=== PATIENT | female | born 1965 | race Caucasian/White ===

== ENCOUNTER 2021-01-23 10:48 | Outpatient (CLI) | payer BC, SELFPAY ==
--- NOTE | 2021-01-23 10:56 | MM_ITS ---
WS: [id number] BILATERAL SCREENING DIGITAL MAMMOGRAM WITH CAD HISTORY: SCREENING COMPARISON: 02/28/2019 and 04/06/2017 Bilateral CC and MLO views submitted. Computer aided detection analyzed. Breast composition: There are scattered areas of fibroglandular density. No suspicious masses, microc alcifications or architectural distortion. Benign calcification in the central LEFT breast. MM/[place] [id number] IMPRESSION: BI-RADS: 2-Benign FOLLOW UP: 1 Year Follow-up
== END 2021-01-23 10:49 | disposition home or self-care (01) ==
LOC: RADSHAW 10:54
PROVIDERS: PCP Nurse Practitioner Family; Visit Provider Nurse Practitioner Family
DX: Z12.31 Encounter for screening mammogram for malignant neoplasm of breast (principal)
CPT/HCPCS: 77067

== ENCOUNTER 2022-02-27 13:08 | Outpatient (CLI) | payer MEDICARE, BC, SELFPAY ==
--- NOTE | 2022-02-27 13:18 | MM_ITS ---
WS: [id number] BILATERAL 3D TOMOSYNTHESIS DIGITAL SCREENING MAMMOGRAPHY WITH CAD CLINICAL INFORMATION: SCREENING HISTORY: Screening mammogram. No current complaints. COMPARISON: January 23, 2021 TECHNIQUE: Bilateral CC and MLO views. FINDINGS: Scattered fibroglandular densities bilaterally. No suspicious focal mass, asymmetry, calcifications, or architectural distortion. No evidence of malignancy. Incidental punctate calcifications. MM/[place] [id number] IMPRESSION: BI-RADS: 2-Benign FOLLOW UP: 1 Year Follow-up Recommend return to annual screening mammography.
== END 2022-02-27 13:09 | disposition home or self-care (01) ==
LOC: RAD 13:09
PROVIDERS: PCP Nurse Practitioner Family; Visit Provider Nurse Practitioner Family
DX: Z12.31 Encounter for screening mammogram for malignant neoplasm of breast (principal)
CPT/HCPCS: 77063; 77067

== ENCOUNTER 2023-06-03 14:27 | Outpatient (CLI) | payer MEDICARE, BC, SELFPAY ==
--- NOTE | 2023-06-03 14:33 | MM_ITS ---
WS: [id number] BILATERAL 3D TOMOSYNTHESIS DIGITAL SCREENING MAMMOGRAPHY WITH CAD CLINICAL INFORMATION: SCREENING HISTORY: Screening mammogram. No current complaints. COMPARISON: 2021 TECHNIQUE: Bilateral CC and MLO views. FINDINGS: Scattered fibroglandular densities bilaterally. No suspicious focal mass, asymmetry, calcifications, or architectural distortion. No evidence of malignancy. Incidental punctate calcifications. IMPRESSION: MM/[place] [id number] BI-RADS: 2-Benign FOLLOW UP: 1 Year Follow-up Recommend return to annual screening mammography.
== END 2023-06-03 14:28 | disposition home or self-care (01) ==
PROVIDERS: PCP Nurse Practitioner Family; Visit Provider Nurse Practitioner Family
DX: Z12.31 Encounter for screening mammogram for malignant neoplasm of breast (principal)
CPT/HCPCS: 77063; 77067

== ENCOUNTER 2024-05-02 08:32 | Emergency (ER) | payer MEDICARE, BC, SELFPAY ==
[2024-05-02 08:45] VITALS: BP 139/101; PULSE 69; RESP 17; TEMP 36.9; O2SAT 97; BMI 56.5
--- NOTE | 2024-05-02 08:50 | ED_ITS ---
HPI - Abdominal Pain 2 General: Chief Complaint: Fever Stated Complaint: abd pain, back pain, fever Time Seen by Provider: 05/02/24 08:46 History of Present Illness: 58-year-old female presents to the [facility] room with fever and back pain. She reports a temp of 100 last night she has pain in the right upper quadrant radiates to the back. She is intermittently had this in the past. She has some generalized myalgias and headache. Denies chest pain no dysuria urgency or frequency no vomiting or diarrhea at this time she has been very nauseous. Associated Symptoms: Reports nausea; Denies chills, coffee ground emesis, diarrhea, dysuria, fever(s), hematemesis and vomiting Related Data Home Medications Medication Instructions Recorded Confirmed acetaminophen 500 mg tablet 100 mg PO BID PRN Pain 05/02/24 05/02/24 (Tylenol Extra Strength) amlodipine 10 mg-benazepril 40 mg 1 cap PO DAILY 05/02/24 05/02/24 capsule apixaban 5 mg tablet (Eliquis) 5 mg PO BID 05/02/24 05/02/24 atenolol 50 mg tablet 50 mg PO BID 05/02/24 05/02/24 atorvastatin 10 mg tablet 10 mg PO DAILY 05/02/24 05/02/24 cetirizine 10 mg tablet (Zyrtec) 10 mg PO DAILY PRN allergies 05/02/24 05/02/24 cyclobenzaprine 5 mg tablet 5 mg PO BID 05/02/24 05/02/24 docusate sodium 50 mg capsule 50 mg PO DAILY 05/02/24 05/02/24 duloxetine 60 mg capsule,delayed 60 mg PO DAILY 05/02/24 05/02/24 release gabapentin 300 mg capsule 300 mg PO BID 05/02/24 05/02/24 oprzpsklmyp-vavguigti-rfw C-Mn 500 1 cap PO DAILY 05/02/24 05/02/24 mg-400 mg capsule golimumab 12.5 mg/mL intravenous 12.5 mg IV Q30D 05/02/24 05/02/24 solution (Simponi ARIA) liraglutide 0.6 mg/0.1 mL (18 mg/3 0.6 mg SUBCUT DAILY 05/02/24 05/02/24 mL) subcutaneous pen injector ([employer] 3-Rashaun) melatonin-herbal complex #184 1 gummy PO BEDTIME PRN Sleep 05/02/24 05/02/24 methotrexate sodium 2.5 mg tablet 2.5 mg PO Q7D 05/02/24 05/02/24 multivitamin 1 tab PO DAILY 05/02/24 05/02/24 omeprazole 20 mg tablet,delayed 20 mg PO DAILY 05/02/24 05/02/24 release polyethylene glycol 3350 17 17 g PO DAILY PRN constipation 05/02/24 05/02/24 gram/dose oral powder (Miralax) prednisone 5 mg tablet 5 mg PO DAILY 05/02/24 05/02/24 solifenacin 10 mg tablet 10 mg PO DAILY 05/02/24 05/02/24 vitamin B complex 1 tab PO DAILY 05/02/24 05/02/24 Previous Rx's Medication Instructions Recorded ciprofloxacin HCl 500 mg tablet 500 mg PO BID #20 tabs 05/02/24 (Cipro) hydrocodone 5 mg-acetaminophen 325 1 tab PO Q6H PRN pain #20 tabs 05/02/24 mg tablet metronidazole 500 mg tablet 500 mg PO BID 10 days #20 tabs 05/02/24 promethazine 25 mg tablet 25 mg PO Q6H PRN nausea and 05/02/24 vomiting #20 tabs Allergies Allergy/AdvReac Type Severity Reaction Status Date / Time Penicillins Allergy ALGY-Rash Verified 05/02/24 08:51 Sulfa (Sulfonamide Allergy ALGY-Rash Verified 05/02/24 08:51 Antibiotics) Review of Systems 2 Const: Denies: fever(s) or chills Card: Denies: chest pain Resp: Denies: dyspnea GI: Reports: abdominal pain and nausea; Denies: vomiting, hematemesis, coffee ground emesis or diarrhea : Denies: dysuria, urinary frequency or urinary urgency Musc: Denies: neck pain or back pain Skin/Breast: Denies: rash Physical Exam 2 Const: GENERAL APPEARANCE: cooperative ORIENTATION/CONSCIOUSNESS: Yes awake, Yes oriented to person, Yes oriented to place and Yes oriented to time HENMT: COMMON NORMALS: normocephalic, atraumatic and hearing grossly normal bilaterally HEAD & SCALP: normocephalic and atraumatic Resp: COMMON NORMALS: normal respiratory effort, No retractions, No use of accessory muscles and clear to auscultation bilaterally AUSCULTATION: clear to auscultation bilaterally Cardio: COMMON NORMALS: regular rate, regular rhythm and No murmurs present (Cardio) RATE: regular rate RHYTHM: regular rhythm GI: COMMON NORMALS: Soft to palpation and No hepatosplenomegaly present A USCULTATION: Yes normoactive bowel sounds PALPATION: Yes Soft to palpation, No Tenderness to palpation present (GI), No Guarding due to palpation present (GI) and Yes No hepatosplenomegaly present Extremity: COMMON NORMALS: normal to inspection, capillary refill normal, no clubbing, cyanosis or edema, no calf tenderness and no pedal edema Neuro: SENSORIUM/ORIENTATION: Yes oriented to person, Yes oriented to place and Yes oriented to time Skin: COMMON NORMALS: no rashes or lesions noted GENERAL SKIN EXAM: no rashes or lesions noted Course 2 Vital Signs: Vital signs: Vital Signs Temperature 98.5 F 05/02/24 08:45 Pulse Rate 64 05/02/24 12:53 Respiratory Rate 16 05/02/24 10:08 Blood Pressure 137/89 05/02/24 12:53 Pulse Oximetry 91 05/02/24 12:53 Oxygen Delivery Me thod Room Air 05/02/24 12:35 MDM - Abdominal Pain Medical Decision Making Suspect patient may have gallbladder issues some of her symptoms are consistent with cholecystitis. We also screened her for COVID. Reviewed your case with on-call surgeon he recommends discharge home on oral antibiotics and follow-up with him in the office. Respiratory panel came back after the patient left and is positive for COVID she has medicines that she is on that interact with Paxlovid recommended having her just to check up with her primary care provider. At this point would recommend her not taking about Paxlovid. Medical Records I reviewed the patient's medical records. Lab Data I reviewed the patient's lab results. 05/02/24 09:12 05/02/24 09:12 Labs/Radiology: Radiology Impressions Gallbladder Ultrasound 05/02/24 09:48 IMPRESSION: 1. Cholelithiasis with gallbladder hydrops. No wall thickening or pericholecystic fluid but suspicious for developing acute cholecystitis. 2. No intrahepatic bile duct dilatation. 3. RIGHT renal cyst. Abdomen/Pelvis CT 05/02/24 09:49 IMPRESSION: 1. No CT evidence for acute cholecystitis. Gallbladder is very slightly hydropic and there are stones present in the lumen but there is no adjacent inflammation or wall thickening. 2. Normal common bile duct. 3. Solid appearing mass anterior mid LEFT kidney measures 2.3 x 2.5 cm. Recommend renal mass CT protocol. This can be performed with CT or MRI with and without IV contrast. 4. No renal obstruction. 5. Pelvis is obscured by artifact secondary to bilateral hip prostheses. Laboratory Results WBC 7.16 10^3/uL (3.29-11.43) 05/02/24 09:12 RBC 4.35 10^6/uL (3.85-5.65) 05/02/24 09:12 Hgb 13.60 g/dL (11.27-16.99) 05/02/24 09:12 Hct 41.1 % (36-47) 05/02/24 09:12 MCV 94.5 fl (85-98) 05/02/24 09:12 MCH 31.3 pg (27-33) 05/02/24 09:12 MCHC 33.1 g/dL (30-55) 05/02/24 09:12 RDW 14.7 % (12.1-15.1) 05/02/24 09:12 Plt Count 233 10^3/cmm (157-399) 05/02/24 09:12 MPV 9.5 fL (7.4-10.4) 05/02/24 09:12 Neut % (Auto) 83.4 % 05/02/24 09:12 Lymph % (Auto) 8.8 % 05/02/24 09:12 [place] % (Auto) 6.7 % 05/02/24 09:12 Eos % (Auto) 0.4 % 05/02/24 09:12 Baso % (Auto) 0.6 % 05/02/24 09:12 Neut # (Auto) 5.97 10^3/uL (1.8-7.7) 05/02/24 09:12 Lymph # (Auto) 0.6 10^3/uL (0.8-4.8) L 05/02/24 09:12 [place] # (Auto) 0.5 10^3/uL (0.2-0.9) 05/02/24 09:12 Eos # (Auto) 0.0 10^3/uL (0.0-0.8) 05/02/24 09:12 Baso # (Auto) 0.0 10^3/uL (0.0-0.1) 05/02/24 09:12 Nucleated RBC % (auto) 0 % 05/02/24 09:12 Nucleated RBCs # 0.0 /100WBC 05/02/24 09:12 Sodium 139 mmol/L (136-145) 05/02/24 09:12 Potassium 3.5 mmol/L (3.5-5.1) 05/02/24 09:12 Chloride 101 mmol/L (98-107) 05/02/24 09:12 Carbon Dioxide 25 mmol/L (22-29) 05/02/24 09:12 Anion Gap 16.5 (5-19) 05/02/24 09:12 BUN 9 mg/dL (6-20) 05/02/24 09:12 Creatinine 0.8 mg/dL (0.5-0.9) 05/02/24 09:12 GFR Calculation 73.4 mL/min (90-130) L 05/02/24 09:12 Glucose 123 mg/dL (65-115) H 05/02/24 09:12 Calculated Osmolality 288 mOsm/kg (285-295) 05/02/24 09:12 Calcium 9.0 mg/dL (8.5-10.5) 05/02/24 09:12 Total Bilirubin 0.5 mg/dL (0.15-1.2) 05/02/24 09:12 AST 20 U/L (0-32) 05/02/24 09:12 ALT 19 U/L (0-33) 05/02/24 09:12 Alkaline Phosphatase 84 U/L (35-105) 05/02/24 09:12 Total Protein 6.6 g/dL (6.6-8.7) 05/02/24 09:12 Albumin 4.1 g/dL (3.5-5.2) 05/02/24 09:12 Globulin 2.5 g/dL (1.3-4.6) 05/02/24 09:12 Lipase 33 U/L (13-60) 05/02/24 09:12 Urine Color Yellow (Yellow) 05/02/24 10:56 Urine Appearance Clear (CLEAR) 05/02/24 10:56 Urine pH 6.5 (5-7) 05/02/24 10:56 Ur Specific [place] 1.008 (1.005-1.030) 05/02/24 10:56 Urine Protein 1+ (Negative) A 05/02/24 10:56 Urine Glucose (UA) Negative (Normal) 05/02/24 10:56 Urine Ketones Negative (Negative) 05/02/24 10:56 Urine Blood Negative (Negative) 05/02/24 10:56 Urine Nitrate Negative (Negative) 05/02/24 10:56 Urine Bilirubin Negative (Negative) 05/02/24 10:56 Urine Urobilinogen 0.2 mg/dL (Negative) 05/02/24 10:56 Ur Leukocyte Esterase Trace (Negative) A 05/02/24 10:56 Urine RBC 0-2 /hpf (0-2) 05/02/24 10:56 Urine WBC 0-5 /hpf (0-5) 05/02/24 10:56 Ur Squamous Epith Cells 0-5 /hpf (0-5) 05/02/24 10:56 Amorphous Sediment Not Reportable 05/02/24 10:56 Urine Bacteria None seen /hpf (NONE) 05/02/24 10:56 Hyaline Casts 0.81 /lpf 05/02/24 10:56 Adenovirus (PCR) Not detected (NOT DETECT) 05/02/24 10:09 C. pneumoniae DNA (PCR) Not detected (NOT DETECT) 05/02/24 10:09 Coronavirus 229E (PCR) Not detected (NOT DETECT) 05/02/24 10:09 Human Metapneumovir PCR Not detected (NOT DETECT) 05/02/24 10:09 Influenza A (H1) PCR Not detected (NOT DETECT) 05/02/24 10:09 Influ A (H1/09) PCR Not detected (NOT DETECT) 05/02/24 10:09 Influenza A (H3) PCR Not detected (NOT DETECT) 05/02/24 10:09 Influenza Type A (PCR) Not detected (NOT DETECT) 05/02/24 10:09 Influenza Type B (PCR) Not detected (NOT DETECT) 05/02/24 10:09 M. pneumoniae (PCR) Not detected (NOT DETECT) 05/02/24 10:09 Parainfluenza 1 (PCR) Not detected (NOT DETECT) 05/02/24 10:09 Parainfluenza 2 (PCR) Not detected (NOT DETECT) 05/02/24 10:09 Parainfluenza 3 (PCR) Not detected (NOT DETECT) 05/02/24 10:09 Parainfluenza 4 (PCR) Not detected (NOT DETECT) 05/02/24 10:09 RSV Type A (PCR) Not detected (NOT DETECT) 05/02/24 10:09 RSV Type B (PCR) Not detected (NOT DETECT) 05/02/24 10:09 Entero/Rhino (PCR) Detected (NOT DETECT) A 05/02/24 10:09 SARS-CoV-2 (PCR) Detected (NOT DETECT) A 05/02/24 10:09 All radiology interpretation(s) finalized by discharge Discharge Plan Discharge Patient Disposition: Home Clinical Impression: Cholecystitis, COVID-19 Condition: Stable Prescriptions: New hydrocodone-acetaminophen 5-325 mg tablet 1 tab PO Q6H PRN (Reason: pain) Qty: 20 0RF promethazine 25 mg tablet 25 mg PO Q6H PRN (Reason: nausea and vomiting) Qty: 20 0RF ciprofloxacin HCl [Cipro] 500 mg tablet 500 mg PO BID Qty: 20 0RF metronidazole 500 mg tablet 500 mg PO BID 10 Days Qty: 20 0RF No Action multivitamin [Multi-Daily] Tablet 1 tab PO DAILY cetirizine [Zyrtec] 10 mg Tablet 10 mg PO DAILY PRN (Reason: allergies) atorvastatin 10 mg tablet 10 mg PO DAILY prednisone 5 mg tablet 5 mg PO DAILY Colace 50 mg Capsule 50 mg PO DAILY acetaminophen [Tylenol Extra Strength] 500 mg Tablet 100 mg PO BID PRN (Reason: Pain) methotrexate sodium 2.5 mg tablet 2.5 mg PO Q7D gabapentin 300 mg capsule 300 mg PO BID vitamin B complex [B-Stress] Tablet 1 tab PO DAILY polyethylene glycol 3350 [Miralax] 17 gram/dose Powder 17 g PO DAILY PRN (Reason: constipation ) atenolol 50 mg tablet 50 mg PO BID sobmvxhrors-iqpzfhhcd-pqz C-Mn [Glucosamine Complex] 500-400 mg Capsule 1 cap PO DAILY cyclobenzaprine 5 mg tablet 5 mg PO BID duloxetine 60 mg capsule,delayed release(DR/EC) 60 mg PO DAILY solifenacin 10 mg tablet 10 mg PO DAILY amlodipine-benazepril 10-40 mg capsule 1 cap PO DAILY omeprazole 20 mg Tablet,Delayed Release (Dr/Ec) 20 mg PO DAILY Eliquis 5 mg tablet 5 mg PO BID Simponi ARIA 12.5 mg/mL Solution 12.5 mg IV Q30D melatonin-herbal complex #184 1 gummy PO BEDTIME PRN (Reason: Sleep) liraglutide [Victoza 3-Rashaun] 0.6 mg/0.1 mL (18 mg/3 mL) Pen Injector 0.6 mg SUBCUT DAILY Rx Instructions: inject 0.6mg subcutaneously once daily x 7 days; then 1.2mg daily, not to exceed 1.8mg/day Discharge Orders: Discharge ED (Routine); Ordered 05/02/24 Ordered By: Darius Quiñones Referrals: Vikas Mahajan MD [Physician] - Maya Melgar FNP [Primary Care Provider] - Discharge Diet: As Directed Discharge Activity: Increase activity as tolerated Patient Instructions: Opioid Safety, Pain Management Activity Restrictions/Additional Instructions: Thank you for choosing [facility] for your healthcare needs today. It is very important that you follow up as instructed or that you return to the Emergency Department should you have concerns or if your condition changes or worsens in any way. You were seen in the ER for abdominal pain your laboratory test showed a normal white count and normal liver functions however there does appear to be some abnormality in your gallbladder. I reviewed the case with the on-call surgeon he recommends that you start on oral antibiotics. In addition we will give you pain and nausea medicines to use as needed. The surgeon would like to see you in his office tomorrow. Coding Level of Care Code ED Chemical Processing Supervisor for Sneha Levine
[2024-05-02 09:25] LABS: Basophils % 0.6 %; Eosinophils % 0.4 %; Hematocrit 41.1 % (36-47); Lymphocytes # 0.6 10^3/uL (0.8-4.8); Lymphocytes % 8.8 %; Mean Corpuscular HGB Conc 33.1 g/dL (30-55); Mean Corpuscular Hemoglobin 31.3 pg (27-33); Mean Corpuscular Volume 94.5 fl (85-98); Mean Platelet Volume 9.5 fL (7.4-10.4); Monocytes # 0.5 10^3/uL (0.2-0.9); Monocytes % 6.7 %; Neutrophils # 5.97 10^3/uL (1.8-7.7); Neutrophils % 83.4 %; Nucleated Red Blood Cells % 0 %; Platelet Count 233 10^3/cmm (157-399); Red Blood Count 4.35 10^6/uL (3.85-5.65); Red Cell Distribution Width 14.7 % (12.1-15.1); White Blood Count 7.16 10^3/uL (3.29-11.43)
[2024-05-02 09:42] LABS: Alanine Aminotransferase 19 U/L (0-33); Albumin Level 4.1 g/dL (3.5-5.2); Alkaline Phosphatase 84 U/L (35-105); Anion Gap 16.5 (5-19); Aspartate Amino Transferase 20 U/L (0-32); Blood Urea Nitrogen 9 mg/dL (6-20); Carbon Dioxide 25 mmol/L (22-29); Chloride 101 mmol/L (98-107); Creatinine Clr Calc Pharmacy 114.6166; Globulin 2.5 g/dL (1.3-4.6); Glomerular Filtration Rate 73.4 mL/min (90-130); Glucose 123 mg/dL (65-115); Lipase 33 U/L (13-60); Osmolality Calculated 288 mOsm/kg (285-295); Potassium 3.5 mmol/L (3.5-5.1); Sodium 139 mmol/L (136-145); Total Bilirubin 0.5 mg/dL (0.15-1.2); Total Protein 6.6 g/dL (6.6-8.7)
--- NOTE | 2024-05-02 09:48 | US_ITS ---
WS: [id number] RIGHT UPPER QUADRANT ULTRASOUND HISTORY: RUQ abd pain COMPARISON: None available. Liver: 16.6 cm in length. Normal size liver and echogenicity. No bile duct dilatation or mass. Portal Vein: Normal hepatopetal flow with monophasic waveform. Gallbladder: Slightly overly distended gallbladder with stones. Mild gallbladder hydrops. No wall thi ckening or pericholecystic fluid. CBD: 0.6 cm Pancreas: Completely obscured. Right kidney: 11.8 cm in length. Normal size kidney. Parapelvic cyst appears to be in the mid kidney measuring 1.6 x 1.5 x 1.6 cm. Aorta and IVC: Unremarkable abdominal aorta and IVC. No ascites. US/US gall bladder [id number] IMPRESSION: 1. Cholelithiasis with gallbladder hydrops. No wall thickening or pericholecys tic fluid but suspicious for developing acute cholecystitis. 2. No intrahepatic bile duct dilatation. 3. RIGHT renal cyst.
--- NOTE | 2024-05-02 09:49 | CT_ITS ---
WS: [id number] CT ABDOMEN AND PELVIS WITH CONTRAST HISTORY: abd pain, fever and pain. TECHNIQUE: Imaging performed of the abdomen and pelvis with IV contrast. Single phase imaging of the abdomen. Coronal and sagittal reformats are submitted. All CT scans at [facility] use at [address] one of these dose optimization techniques: automated exposure control; mA and/or kV adjustment per patient size (includes targeted exams where dose is matched to clinical indication); or iterative re construction. IV CONTRAST: Omnipaque 350; 100 mL IV. Oral contrast: No DLP: 24.00 mGy.cm COMPARISON: Gallbladder ultrasound 05/02/2024 Lower thorax: Lung bases are clear. Heart is normal size. Small hiatal hernia. Liver/biliary system: Normal size with no intrahepatic dilatation. Gallbladder: Gallbladder is just slightly overly distended measuring 4.8 cm in transverse diameter. I ncreased density in the dependent portion of the gallbladder. No wall thickening or inflammation. No fluid. Normal common bile duct. Pancreas: Normal size pancreas and pancreatic duct. No adjacent inflammation. Spleen: Normal size spleen. No mass or infarct. Adrenal glands: Normal. Right kidney: No obstruction. Slightly lobulated renal cortex. 1.4 cm cyst lower pole. Left kidney: Hypodense, slightly lobulated mass in the mid anterior LEFT kidney measures 2.3 x 2.5 cm . Possible renal cell neoplasm. There is an additional smaller 7 mm cortical cyst in the lower pole. Aorta: Mild atherosclerosis with no aneurysm. Lymphadenopathy: None. Free fluid: Small amount of fluid in the pelvis could be obscured by extensive beam hardening artifac t related to the patient's hip prostheses. GI tract: Unremarkable. Abdominal wall: Unremarkable abdominal wall. No hernia. Pelvis: Poorly visualized due to beam hardening artifact. Bones: Increase in lumbar lordosis and scoliosis. Prior bilateral hip prostheses. CT/CT abdomen pelvis w con* [id number] IMPRESSION: 1. No CT evidence for acute cholecystitis. Gallbladder is very slightly hydrop ic and there are stones present in the lumen but there is no adjacent inflammat ion or wall thickening. 2. Normal common bile duct. 3. Solid appearing mass anterior mid LEFT kidney measures 2.3 x 2.5 cm. Recomm end renal mass CT protocol. This can be performed with CT or MRI with and witho ut IV contrast. 4. No renal obstruction. 5. Pelvis is obscured by artifact secondary to bilateral hip prostheses.
[2024-05-02 10:08] VITALS: BP 128/101; PULSE 73; RESP 16; O2SAT 96
--- NOTE | 2024-05-02 10:19 | PC.PHAR ---
Patient states she was taking Victoza for weight loss and has stopped for a week .
[2024-05-02 11:11] LABS: Bilirubin Urine Negative (Negative); Blood Urine Negative (Negative); Glucose Urine UA Negative (Normal); Ketones Urine Negative (Negative); Leukocyte Esterase Urine Trace (Negative); Nitrate Urine Negative (Negative); Protein Urine 1+ (Negative); Specific Gravity, Urine 1.008 (1.005-1.030); Urine Appearance Clear (CLEAR); Urine Color Yellow (Yellow); Urobilinogen Urine 0.2 mg/dL (Negative); pH Urine 6.5 (5-7)
[2024-05-02 11:18] LABS: Add Urine Microscopic? YES; Bacteria Urine None Seen /hpf; Hyaline Casts Urine 0.81 /lpf; RBC Urine 0-2 /hpf (0-2); Squamous Epithelial Cell Urine 0-5 /hpf (0-5); WBC Urine 0-5 /hpf (0-5)
--- NOTE | 2024-05-02 12:11 | DCPLANNER ---
messaged gen surg for er f/u
[2024-05-02 12:35] VITALS: BP 144/72; PULSE 56; O2SAT 91
[2024-05-02 12:53] VITALS: BP 137/89; PULSE 64; O2SAT 91
[2024-05-02 14:12] LABS: Adenovirus Not Detected (NOT DETECT); Chlamydia Pneumoniae Not Detected (NOT DETECT); Coronavirus 229E,HKU1,NL63,OC4 Not Detected (NOT DETECT); Human Metapneumovirus Not Detected (NOT DETECT); Human Rhinovirus/Enterovirus Detected (NOT DETECT); Influenza A Not Detected (NOT DETECT); Influenza A H1 Not Detected (NOT DETECT); Influenza A H1-2009 Not Detected (NOT DETECT); Influenza A H3 Not Detected (NOT DETECT); Influenza B Not Detected (NOT DETECT); Mycoplasma Pneumoniae Not Detected (NOT DETECT); Parainfluenza Virus Type 1 Not Detected (NOT DETECT); Parainfluenza Virus Type 2 Not Detected (NOT DETECT); Parainfluenza Virus Type 3 Not Detected (NOT DETECT); Parainfluenza Virus Type 4 Not Detected (NOT DETECT); Respiratory Syncytial Virus A Not Detected (NOT DETECT); Respiratory Syncytial Virus B Not Detected (NOT DETECT)
[2024-05-02 14:17] LABS: SARS-COV-2 Detected (NOT DETECT)
== END 2024-05-02 12:56 | disposition home or self-care (01) ==
PROVIDERS: Emergency Provider Family Medicine; PCP Nurse Practitioner Family
DX: K81.9 Cholecystitis, unspecified (principal); U07.1 COVID-19
CPT/HCPCS: 36415; 74177; 76705; 80053; 81001; 83690; 85025; 87486; 87581; 87633; 99284

== ENCOUNTER → 2024-05-19 10:32 | Outpatient (BNVA) | payer MEDICARE, BC, SELFPAY | PROVIDERS: PCP Nurse Practitioner Family; Visit Provider Student in an Organized Health Care Education/Training Program | DX: K81.1 Chronic cholecystitis (principal) | CPT/HCPCS: 99204 ==

== ENCOUNTER 2024-06-08 06:12 | Day surgery (SDC) | payer MEDICARE, BC, SELFPAY ==
[2024-06-08] VITALS (10 sets, daily range): BP systolic 90–153; BP diastolic 53–101; PULSE 52–71; RESP 15–20; TEMP 36.3–36.4; O2SAT 92–99; BMI 55.7
[2024-06-08] MEDS: vancomycin 2,000 MG/400 ML PIGGYBACK 200 MG IV (06:52)
[2024-06-08] MEDS: sodium chloride 0.9% 1,000 ML 30 ML IV (06:52)
--- NOTE | 2024-06-08 06:54 | P.ANESASSM_ITS ---
Pre-Anesthetic Assessment Height/Weight: Height 5 ft 5 in Weight 335 lb Temp Pulse Resp BP Pulse Ox O2 Del Method 97.5 F L 65 18 153/101 98 Room Air 06/08/24 06:22 06/08/24 06:22 06/08/24 06:22 06/08/24 06:22 06/08/24 06:22 06/08/24 06:25 Preop Diagnosis: Chronic cholecystitis Operation Date: 06/08/24 07:50 Proposed Procedures p Laparoscopic Cholecystectomy 66305, K81.1(Not Applicable) - Vikas Mahajan MD Was Beta Dougie taken within 24 hours: N/A Was Clonidine taken within 24 hours: N/A Last intake: Intake Last Liquid Date 06/07/24 Last Liquid Time 22:30 Last Solid Date 06/07/24 Last Solid Time 20:00 Social No alcohol and No tobacco Exam alert, oriented x 3, clear to auscultation bilaterally and regular rate & rhythm Airway Submandibular: within normal limits Cervical ROM: within normal limits Mallampati: Class IV Dentition: full Comments: Comments: Decent mouth opening, large tongue and neck circumference Anesthetic Plan ASA status: 3 Anesthesia: General Other: No prior issues with anesthesia NPO since yesterday Patient has a significant history of hypertension on amlodipine?benazepril and atenolol SANDEEP, on CPAP BMI 55 Type 2 diabetes on liraglutide. Last taken 04/25/2024 GERD on omeprazole Labs reviewed 05/02/2024 and acceptable for procedure Plan for GETA, suggest video laryngoscopy Medications/Allergies Home Medications ?Medication ?Instructions ?Recorded ?Confirmed ?Last Taken ?Type acetaminophen 500 mg tablet 100 mg PO BID PRN Pain 10/1906/07/24 05/02/24 History (Tylenol Extra Strength) amlodipine 10 mg-benazepril 40 mg 1 cap PO DAILY 05/0206/07/24 06/07/24 History capsule apixaban 5 mg tablet (Eliquis) 5 mg PO BID 05/02/2406/05/24 History atenolol 50 mg tablet 50 mg PO BID 05/02/2406/07/24 History atorvastatin 10 mg tablet 10 mg PO DAILY 05/02/2405/2806/07/24 History cetirizine 10 mg tablet (Zyrtec) 10 mg PO DAILY PRN al lergies 05/02/24 06/07/24 06/07/24 History cyclobenzaprine 5 mg tablet 5 mg PO BID 05/02/2406/07 Unknown History docusate sodium 50 mg capsule 50 mg PO DAILY 05/02/24 06/07/24 05/02/24 History duloxetine 60 mg capsule,delayed 60 mg PO DAILY 06/07/24 06/07/24 History release gabapentin 300 mg capsule 300 mg PO BID 05/02/2406/0706/07/24 History irmvizyxbtb-zinfovxnv-qdx C-Mn 500 1 cap PO DAILY 10/1906/07/24 06/07/24 History mg-400 mg capsule golimumab 12.5 mg/mL intravenous 12.5 mg IV Q30D 05/0206/07/24 04/12/24 History solution (Simponi ARIA) hydrocodone 5 mg-acetaminophen 325 1 tab PO Q6H PRN pa in #20 tabs 05/02/24 06/07/24 Unknown Rx mg tablet liraglutide 0.6 mg/0.1 mL (18 mg/3 0.6 mg SUBCUT DAILY 05/02/24 06/07/24 04/25/24 History mL) subcutaneous pen injector (Victoza 3-Rashaun) melatonin-herbal complex #184 1 gummy PO BEDTIME PRN S leep 05/02/24 06/07/24 06/07/24 History methotrexate sodium 2.5 mg tablet 2.5 mg PO Q7D 06/07/24 06/07/24 History multivitamin 1 tab PO DAILY 05/02/2405/2806/07/24 History omeprazole 20 mg tablet,delayed 20 mg PO DAILY 5 06/07/24 06/07/24 History release polyethylene glycol 3350 17 17 g PO DAILY PRN constipa tion 05/02/24 06/07/24 06/07/24 History gram/dose oral powder (Miralax) prednisone 5 mg tablet 5 mg PO DAILY 05/02/2406/0706/07/24 History solifenacin 10 mg tablet 10 mg PO DAILY 05/02/2405/28/25 History vitamin B complex 1 tab PO DAILY 05/02/2405/2806/07/24 History folic acid 1 mg tablet 1 mg PO DAILY 05/19/2406/0706/07/24 History Allergies Allergy/AdvReac Type Severity Reaction Status Date / Time Penicillins Allergy ALGY-Rash Verified 06/07/24 12:47 Sulfa (Sulfonamide Allergy ALGY-Rash Verified 06/07/24 12:47 Antibiotics) PFS Anesthesia Family History (Updated 05/19/24 @ 10:[address]) Father Diabetes Mother Hypertension Cancer prostate Social History (Updated 05/19/24 @ 10:[address]) Smoking and tobacco/nicotine status: never used tobacco/nicotine Data Anesthesia Cardiac Studies: No Data to Display
--- NOTE | 2024-06-08 06:54 | ANES.PREANE2 ---
Pre-Anesthetic Assessment Height/Weight: Height 5 ft 5 in Weight 335 lb Temp Pulse Resp BP Pulse Ox O2 Del Method 97.5 F L 65 18 153/101 98 Room Air 06/08/24 06:22 06/08/24 06:22 06/08/24 06:22 06/08/24 06:22 06/08/24 06:22 06/08/24 06:25 Preop Diagnosis: Chronic cholecystitis Operation Date: 06/08/24 07:50 Proposed Procedures p Laparoscopic Cholecystectomy 59969, K81.1(Not Applicable) - Vikas Mahajan MD Was Beta Dougie taken within 24 hours: N/A Was Clonidine taken within 24 hours: N/A Last intake: Intake Last Liquid Date 06/07/24 Last Liquid Time 22:30 Last Solid Date 06/07/24 Last Solid Time 20:00 Social No alcohol and No tobacco Exam alert, oriented x 3, clear to auscultation bilaterally and regular rate & rhythm Airway Submandibular: within normal limits Cervical ROM: within normal limits Mallampati: Class IV Dentition: full Comments: Comments: Decent mouth opening, large tongue and neck circumference Anesthetic Plan ASA status: 3 Anesthesia: General Other: No prior issues with anesthesia NPO since yesterday Patient has a significant history of hypertension on amlodipine?benazepril and atenolol SANDEEP, on CPAP BMI 55 Type 2 diabetes on liraglutide. Last taken 04/25/2024 GERD on omeprazole Labs reviewed 05/02/2024 and acceptable for procedure Plan for GETA, suggest video laryngoscopy Medications/Allergies Home Medications ?Medication ?Instructions ?Recorded ?Confirmed ?Last Taken ?Type acetaminophen 500 mg tablet 100 mg PO BID PRN Pain 05/02/24 06/07/24 05/02/24 History (Tylenol Extra Strength) amlodipine 10 mg-benazepril 40 mg 1 cap PO DAILY 05/02/24 06/07/24 06/07/24 History capsule apixaban 5 mg tablet (Eliquis) 5 mg PO BID 05/02/24 06/07/24 06/05/24 History atenolol 50 mg tablet 50 mg PO BID 05/02/24 06/07/24 06/07/24 History atorvastatin 10 mg tablet 10 mg PO DAILY 05/02/24 06/07/24 06/07/24 History cetirizine 10 mg tablet (Zyrtec) 10 mg PO DAILY PRN allergies 05/02/24 06/07/24 06/07/24 History cyclobenzaprine 5 mg tablet 5 mg PO BID 05/02/24 06/07/24 Unknown History docusate sodium 50 mg capsule 50 mg PO DAILY 05/02/24 06/07/24 05/02/24 History duloxetine 60 mg capsule,delayed 60 mg PO DAILY 05/02/24 06/07/24 06/07/24 History release gabapentin 300 mg capsule 300 mg PO BID 05/02/24 06/07/24 06/07/24 History hjirpqpfvtj-ijiopgwse-ogi C-Mn 500 1 cap PO DAILY 05/02/24 06/07/24 06/07/24 History mg-400 mg capsule golimumab 12.5 mg/mL intravenous 12.5 mg IV Q30D 05/02/24 06/07/24 04/12/24 History solution (Simponi ARIA) hydrocodone 5 mg-acetaminophen 325 1 tab PO Q6H PRN pain #20 tabs 05/02/24 06/07/24 Unknown Rx mg tablet liraglutide 0.6 mg/0.1 mL (18 mg/3 0.6 mg SUBCUT DAILY 05/02/24 06/07/24 04/25/24 History mL) subcutaneous pen injector (Victoza 3-Rashaun) melatonin-herbal complex #184 1 gummy PO BEDTIME PRN Sleep 05/02/24 06/07/24 06/07/24 History methotrexate sodium 2.5 mg tablet 2.5 mg PO Q7D 05/02/24 06/07/24 06/07/24 History multivitamin 1 tab PO DAILY 05/02/24 06/07/24 06/07/24 History omeprazole 20 mg tablet,delayed 20 mg PO DAILY 05/02/24 06/07/24 06/07/24 History release polyethylene glycol 3350 17 17 g PO DAILY PRN constipation 05/02/24 06/07/24 06/07/24 History gram/dose oral powder (Miralax) prednisone 5 mg tablet 5 mg PO DAILY 05/02/24 06/07/24 06/07/24 History solifenacin 10 mg tablet 10 mg PO DAILY 05/02/24 06/07/24 06/07/24 History vitamin B complex 1 tab PO DAILY 05/02/24 06/07/24 06/07/24 History folic acid 1 mg tablet 1 mg PO DAILY 05/19/24 06/07/24 06/07/24 History Allergies Allergy/AdvReac Type Severity Reaction Status Date / Time Penicillins Allergy ALGY-Rash Verified 06/07/24 12:47 Sulfa (Sulfonamide Allergy ALGY-Rash Verified 06/07/24 12:47 Antibiotics) PFSH Anesthesia Family History (Updated 05/19/24 @ 10:41 by FARHAN Sanches) Father Diabetes Mother Hypertension Cancer prostate Social History (Updated 05/19/24 @ 10:[address]) Smoking and tobacco/nicotine status: never used tobacco/nicotine Data Anesthesia Cardiac Studies: No Data to Display
--- NOTE | 2024-06-08 07:07 | W.PM.OPSUD ---
Surgery/Procedure H&P Update DATE OF PROCEDURE: June 08, 2024 DATE H&P PERFORMED: 05/19/24 H&P UPDATE INFORMATION: I have reviewed H&P completed within last 30 days, I have examined patient prior to procedure and No changes to prior documentation PLANNED PROCEDURE: Operation Date: 06/08/24 07:50 Proposed Procedures p Laparoscopic Cholecystectomy 51654, K81.1(Not Applicable) - Vikas Mahajan MD
[2024-06-08] MEDS: lidocaine-epi 1% 20 mL INJ 10 ML INJECTION (08:28)
--- NOTE | 2024-06-08 09:04 | P.OP_ITS ---
Operative Report Date of procedure: June 08, 2024 Pre-op diagnosis: Chronic cholecystitis Post-op findings: Gallbladder with inflammatory rind Procedure done: Laparoscopic cholecystectomy Implants: N/A Specimens removed/disposition: Gallbladder Pathology: Gallbladder sent to pathology Surgeon: Vikas Mahajan MD Health Care Aide: N/A Anesthesia: General Estimated blood loss (mL): 10 Complications: N/A Findings: Gallbladder with inflammatory rind. Condition: stable Disposition: same day Brief History: 58-year-old female who presented with chronic cholecystitis. Discussed risks and benefits and patient agreed to proceed with laparoscopic cholecystectomy possible open. Procedure: I discussed the risks and benefits of laparoscopic cholecystectomy, and obtained consent prior to proceeding to the operating room. SCDs were utilized. Prophylactic antibiotics were administered. General anesthesia was induced. The patient was placed supine, and she was prepped and draped in the usual sterile fashion. Insufflation to 15mmHg was achieved using a Veress needle at Hodge's point. A 12mm optiview trocar was placed at the umbilicus under direct visualization. The left upper quadrant was inspected, and no injuries were noted. Two 5mm ports were placed in the right upper quadrant, and a 12mm working port was placed in the epigastrium. The gallbladder was then retracted cephalad through the lateral RUQ port, and the infundibulum grabbed through the medial RUQ port and retracted laterally. The gallbladder was inflammed and thus consistent with her diagnosis of chronic cholecystitis. I proceeded to score the peritoneum over the medial aspect of the gallbladder using a laparoscopic hook with electrocautery. Then the infundibulum was retracted medially in order to score the peritoneum over the lateral aspect of the galbladder. Using a combinat ion of energy and blunt dissection with the [place] and a Kittner dissector, the cystic artery and cystic duct were dissected. I then proceeded to dissect the cystic plate in order to to achieve the critical view of safety. The cystic artery and the cystic duct were clipped three times (leaving two clips on the proximal end of both structures). I then proceeded to dissect the gallbladder off the liver using hook electrocautery. The specimen was placed in an endocatch bag and retrieved from the abdomen through the port on the epigastrium. I then irrigated the gallbladder fossa with 1L of NS to confirm adequate hemostasis and the absence of any bile leaks. The gallbladder fossa was then cauterized again. Prior to ending the laparoscopic portion, I examined the rest of the abdomen and did not find any abnormalities or injuries. The abdomen was then desufflated, and the 12mm port at the umbilicus was closed using 0 vicryl on a UR needle after irrigating copiously. Skin was closed using 4-0 monocryl and surgical glue. The patient woke up from anesthesia and transferred to PACU without any complications.
--- NOTE | 2024-06-08 10:08 | SUR.PHASEII ---
Upon arrival to Postop patient stated only discomfort was to her right side and right shoulder. Patient is awake and drinking a cola and eating saltine crackers.
[2024-06-08] MEDS: oxyCODONE 5 mg IR Tab/Cap PO (10:15)
--- NOTE | 2024-06-08 10:29 | ANE.PACU2 ---
Inpatient post-anesthesia follow up: Airway intact: Yes Vital signs: Temperature 97.3 F Pulse Rate 52 Respiratory Rate 17 Blood Pressure 105/63 Pulse Oximetry 96 Oxygen Delivery Me thod Room Air Oxygen Flow Rate 6 Fraction of Inspir ed Oxygen Hydration adequate: Yes Nausea and vomiting: No Pain level: 1 Mental status: Baseline
== END 2024-06-08 10:29 | disposition home or self-care (01) ==
PROVIDERS: PCP Nurse Practitioner Family; Visit Provider Student in an Organized Health Care Education/Training Program
PROC: 0FT44ZZ Resection of Gallbladder, Percutaneous Endoscopic Approach (ICD-10-PCS; CPT 47562; principal; 2024-06-08 07:50)
DX: K80.10 Calculus of gallbladder with chronic cholecystitis without obstruction (principal); I10 Essential (primary) hypertension; Z79.899 Other long term (current) drug therapy; G47.33 Obstructive sleep apnea (adult) (pediatric); Z68.43 Body mass index [BMI] 50.0-59.9, adult; K21.9 Gastro-esophageal reflux disease without esophagitis; Z79.01 Long term (current) use of anticoagulants; Z79.85 Long-term (current) use of injectable non-insulin antidiabetic drugs; Z88.0 Allergy status to penicillin; Z88.2 Allergy status to sulfonamides; I48.0 Paroxysmal atrial fibrillation
CPT/HCPCS: 47562; 88304; A4216; J1100; J1171; J2250; J2371; J2405; J2704; J2710; J3010; J3372; J3490; J7030

== ENCOUNTER → 2024-06-20 11:15 | Outpatient (BNVA) | payer MEDICARE, BC, SELFPAY | PROVIDERS: PCP Nurse Practitioner Family; Visit Provider Student in an Organized Health Care Education/Training Program | DX: Z98.890 Other specified postprocedural states (principal); Z90.49 Acquired absence of other specified parts of digestive tract | CPT/HCPCS: 99024 ==

== ENCOUNTER 2024-08-10 15:09 | Outpatient (CLI) | payer MEDICARE, BC, SELFPAY ==
--- NOTE | 2024-08-10 15:13 | CT_ITS ---
WS: [id number] CT ABDOMEN WITH AND WITHOUT CONTRAST HISTORY: LEFT RENAL MASS Multiphase [address] abdomen. Oral contrast has not been provided. Coronal and sagittal reformats are submitted. All CT scans at [facility] use at least one of these dose optimization techniques: automated exposure control; mA and/or kV adjustment per patient size (includes targeted exams where dose is matched to clinical indication); or iterative reconstruction. IV CONTRAST: Omnipaque 350; 100 mL IV. Oral contrast: No DLP: 3572.35 mGy.cm COMPARISON: 05/02/2024 Lower thorax: Lung bases are clear. Mild cardiomegaly. Small hiatal hernia. Liver/biliary system: Normal size with no intrahepatic dilatation. Gallbladder: Prior cholecystectomy. Pancreas: Normal size pancreas and pancreatic duct. No adjacent inflammation. Spleen: Normal size spleen. No mass or infarct. Adrenal glands: Normal. Right kidney: Normal size kidney. There are a few tiny cortical cysts. Renal cortex is lobulated. 1.4 cm cyst in the lower pole. No obstruction. Left kidney: No renal obstruction. Reidentified is the mass in change in echogenicity involving the mid anterior LEFT kidney. On the noncontrast exam there is very slight increased attenuation with Hounsfield of 66 units. On the postcontrast imaging there is minimal enhancement but not significant to suggest this is a solid enhancing neoplasm. Mass measures 2.1 x 1.5 cm. Additional cortical cyst with scarring towards the lower pole measures 8 mm. Aorta: Normal. Lymphadenopathy: None. Free fluid: None. GI tract: Unremarkable. Abdominal wall: Unremarkable abdominal wall. No hernia. Visualized osseous structures: Degenerative disc disease and osteophytosis. CT/CT abdomen wo/w con [id number] IMPRESSION: 1. LEFT renal mass, anterior mid kidney measures 2.1 x 1.5 cm. No significant enhancement on the postcontrast imaging. Suspect this is a benign renal mass quigley ch as complex cyst or hemorrhagic cyst. Suggest 6-month follow-up abdomen CT re nal mass protocol to document continued stability. 2. Small bilateral renal cysts otherwise. 3. Prior cholecystectomy.
[2024-08-10] MEDS: iohexol 350 mg/mL 500 mL Btl (per mL) IV (15:37)
== END 2024-08-10 15:10 | disposition home or self-care (01) ==
PROVIDERS: PCP Nurse Practitioner Family; Visit Provider Nurse Practitioner Family
DX: N28.89 Other specified disorders of kidney and ureter (principal); N28.1 Cyst of kidney, acquired; Z90.49 Acquired absence of other specified parts of digestive tract; I51.7 Cardiomegaly; K44.9 Diaphragmatic hernia without obstruction or gangrene; R93.421 Abnormal radiologic findings on diagnostic imaging of right kidney; R93.422 Abnormal radiologic findings on diagnostic imaging of left kidney; R93.7 Abnormal findings on diagnostic imaging of other parts of musculoskeletal system
CPT/HCPCS: 74170